=== PATIENT | female | born 1950 | race Two or more races ===

== ENCOUNTER 2020-03-02 03:40 | Emergency (ER) | payer MEDICARE, OTHER ==
[~2020-03-02] VITALS: Ht 152.4 cm; Wt 67.1 kg
--- NOTE | 2020-03-02 04:09 | NUR ---
PATIENT CAME TO ER BED 9 BIBRA FOR HIGH BLOOD PRESSURE IN THE 200s SYSTOLICALLY. UPON CHECKING BLOOD PRESSURE, PATIENT'S BLOOD PRESSURE AT 143/76. PATIENT STATES THAT SHE WAS AT A [employer] WITH HER FAMILY. PATIENT DENIES USE OF ALCOHOL AND DRUGS. PATIENT IS PATIENT UNABLE TO OPEN HER EYES. PATIENT SPEAKS MAINLY [place]. AAOX3. NO SOB. BREATHING EVENLY AND UNLABORED ON ROOM AIR AT 100%. CONNECTED TO MONITOR.
--- NOTE | 2020-03-02 04:12 | NUR ---
TECH AT BEDSIDE FOR EKG
--- NOTE | 2020-03-02 04:14 | NUR ---
BLOOD COLLECTED AND SENT TO THE LAB.
[2020-03-02 04:20] LABS: BASOPHILS # (AUTO) 0.1 /CMM (0.0-0.2); BASOPHILS % (AUTO) 0.9 % (0.0-2.0); EOSINOPHILS % (AUTO) 2.8 % (0.0-6.0); HEMATOCRIT 28 % (33-45); HEMOGLOBIN 9.3 g/dL (11.5-14.8); LYMPHOCYTES % (AUTO) 37.2 % (20.0-44.0); MEAN CORPUSCULAR HGB CONC 33 g/dl (31.0-36.0); MEAN CORPUSCULAR VOLUME 98 fL (82-100); MONOCYTES # (AUTO) 0.5 /CMM (0.1-1.30); NEUTROPHILS # (AUTO) 2.7 /CMM (1.8-8.9); NEUTROPHILS % (AUTO) 50.1 % (43.0-81.0); PLATELET COUNT (AUTO) 216 /CMM (150-450); RED BLOOD CELL COUNT(AUTO) 2.85 MIL/uL (4.0-5.2); WHITE BLOOD COUNT (AUTO) 5.4 K/uL (4.3-11.0)
--- NOTE | 2020-03-02 04:27 | NUR ---
PATIENT TAKEN TO CT VIA HEIDI
[2020-03-02 04:39] LABS: ALANINE AMINOTRANSFERASE 8 U/L (12-78); ALBUMIN 2.8 g/dL (3.4-5.0); ALCOHOL, BLOOD < 3 mg/dL (0-0); ALKALINE PHOSPHATASE 53 U/L (46-116); ASPARTATE AMINOTRANSFERASE 18 U/L (15-37); BILIRUBIN,DIRECT 0.1 mg/dL (0.0-0.2); BILIRUBIN,TOTAL 0.3 mg/dL (0.2-1.0); CALCIUM, SERUM 7.6 mg/dL (8.5-10.1); CARBON DIOXIDE 27 mmol/L (21-32); CHLORIDE 108 mmol/L (98-107); CREATININE 1.3 mg/dL (0.6-1.3); GLUCOSE 103 mg/dL (74-106); POTASSIUM 3.5 mmol/L (3.5-5.1); SODIUM SERUM 142 mmol/L (136-145); TOTAL PROTEIN, SERUM 5.9 g/dL (6.4-8.2); UREA NITROGEN, BLOOD 21 mg/dL (7-18)
--- NOTE | 2020-03-02 04:46 | NUR ---
URINE COLLECTED AND SENT TO LAB.
--- NOTE | 2020-03-02 05:19 | NUR ---
TRIED CALLING NUMBER IN PATIENT'S EMERGENCY CONTACT LIST. LEFT A VOICEMAIL.
--- NOTE | 2020-03-02 05:23 | NUR ---
CALLED [facility] FOR READ FOR XRAY AND CT.
--- NOTE | 2020-03-02 05:41 | NUR ---
ATTEMPTED TO CALL NUMBER IN PATIENT'S EMERGENCY CONTACT LIST NO ANSWER. WILL TRY AGAIN.
--- NOTE | 2020-03-02 06:24 | NUR ---
TRIED CALLING NUMBER IN PATIENT'S EMERGENCY CONTACT LIST. NO ANSWER, WILL TRY AGAIN.
--- NOTE | 2020-03-02 08:56 | NUR ---
CALLED [phone] [facility] FOR ERROL
--- NOTE | 2020-03-02 10:25 | NUR ---
RICH FANG CALLED [phone] WILL COME TO PICK MOM UP IN 20 MINS.
--- NOTE | 2020-03-02 10:59 | NUR ---
PTS. FAMILY VERBALIZED UNDERSTANDING OF AFTERCARE INSTRUCTIONS.Patient discharged to home with family in stable condition. Written and verbal after care instructions given. Patient verbalizes understanding of instruction.
--- NOTE | 2020-03-02 10:59 | NUR ---
IV removed. Catheter intact and site benign. Pressure and 4x4 applied to site. No bleeding noted.
[2020-03-02 11:00] VITALS: BP 141/88
== END 2020-03-02 11:00 | disposition home or self-care (01) ==
LOC: ER 03:42
DX: R42 Dizziness and giddiness (principal); I10 Essential (primary) hypertension; E11.9 Type 2 diabetes mellitus without complications; J44.9 Chronic obstructive pulmonary disease, unspecified; Z89.412 Acquired absence of left great toe
CPT/HCPCS: 36415; 70450-TC; 71045-TC; 80048-TC; 80076-TC; 80305; 84484-TC; 85025-TC; 85730-TC

== ENCOUNTER 2023-10-10 14:52 | Inpatient (IN) | payer MEDICARE, OTHER ==
[~2023-10-10] VITALS: Ht 160 cm; Wt 61.2 kg
[2023-10-10] MEDS ORDERED: Magnesium 1GM/D5W 100ML PREMIX 100 ML IV ONE ×2 (15:29→15:37)
[2023-10-10] MEDS ORDERED: methylPREDNISolone SOD SUCC 125 MG/2ML VIAL ONE (15:29)
[2023-10-10 15:30] LABS: BASOPHILS % (AUTO) 0.6 % (0.0-2.0); EOSINOPHILS % (AUTO) 0.4 % (0.0-6.0); HEMATOCRIT 28 % (33-45); HEMOGLOBIN 8.8 g/dL (11.5-14.8); LYMPHOCYTES # (AUTO) 0.9 K/uL (0.8-4.8); LYMPHOCYTES % (AUTO) 16.1 % (20.0-44.0); MEAN CORPUSCULAR HEMOGLOBIN 28 PG (26.0-33.0); MEAN CORPUSCULAR HGB CONC 32 g/dl (31.0-36.0); MEAN CORPUSCULAR VOLUME 89 fL (82-100); MONOCYTES # (AUTO) 0.3 K/uL (0.1-1.30); MONOCYTES % (AUTO) 5.3 % (2.0-12.0); NEUTROPHILS # (AUTO) 4.5 K/uL (1.8-8.9); NEUTROPHILS % (AUTO) 77.6 % (43.0-81.0); PLATELET COUNT (AUTO) 393 K/uL (150-450); RED BLOOD CELL COUNT(AUTO) 3.15 MIL/uL (4.0-5.2); RED CELL DISTRIBUTION WIDTH 16.4 % (11.5-15.0); WHITE BLOOD COUNT (AUTO) 5.7 K/uL (4.3-11.0)
[2023-10-10] MEDS: methylPREDNISolone SOD SUCC 125 MG/2ML VIAL IV ONE (15:30)
[2023-10-10] MEDS ORDERED: SULF1TAB48 PO (15:33)
[2023-10-10] MEDS ORDERED: TRAM50TA2 PO (15:33)
[2023-10-10] MEDS ORDERED: GABA300C PO (15:33)
[2023-10-10] MEDS ORDERED: LEVO50TA PO (15:33)
[2023-10-10] MEDS ORDERED: INSU100I30 SQ (15:33)
[2023-10-10] MEDS ORDERED: AMLO5TAB4 PO (15:33)
[2023-10-10] MEDS ORDERED: PRAM0.5T3 PO (15:33)
[2023-10-10] MEDS ORDERED: EMPA10TA PO (15:33)
[2023-10-10] MEDS ORDERED: LOSA100T31 PO (15:33)
[2023-10-10] MEDS ORDERED: BLOO-668 IN (15:33)
[2023-10-10] MEDS ORDERED: ESOM40CA52 PO (15:33)
[2023-10-10] MEDS ORDERED: MEGE40TA5 PO (15:33)
[2023-10-10] MEDS: Magnesium 1GM/D5W 100ML PREMIX 200 ML IV ONE (15:35)
[2023-10-10] MEDS ORDERED: IPRATROPIUM NEB FS 0.5 MG/2.5 ML AMPUL.NEB ONE (15:39)
[2023-10-10] MEDS ORDERED: ALBUTEROL FS 2.5 MG/3 ML VIAL.NEB ONE (15:39)
[2023-10-10] MEDS: ALBUTEROL FS 2.5 MG/3 ML VIAL.NEB CONTNEB ONE (15:43)
[2023-10-10] MEDS: IPRATROPIUM NEB FS 0.5 MG/2.5 ML AMPUL.NEB NEB ONE (15:43)
[2023-10-10 15:44] VITALS: O2SAT 97
[2023-10-10 15:44] LABS: CALCIUM, SERUM 8.5 mg/dL (8.5-10.1); CARBON DIOXIDE 26 mmol/L (21-32); CHLORIDE 100 mmol/L (98-107); CREATININE 1.3 mg/dL (0.6-1.3); GLUCOSE 165 mg/dL (74-106); POTASSIUM 5.1 mmol/L (3.5-5.1); SODIUM SERUM 132 mmol/L (136-145); UREA NITROGEN, BLOOD 19 mg/dL (7-18)
[2023-10-10 16:04] VITALS: O2SAT 99
[2023-10-10 16:07] LABS: ALANINE AMINOTRANSFERASE 17 U/L (12-78); ALBUMIN 2.3 g/dL (3.4-5.0); ALKALINE PHOSPHATASE 131 U/L (46-116); ASPARTATE AMINOTRANSFERASE 47 U/L (15-37); BILIRUBIN,DIRECT 0.1 mg/dL (0.0-0.2); BILIRUBIN,TOTAL 0.3 mg/dL (0.2-1.0); TOTAL PROTEIN, SERUM 7.1 g/dL (6.4-8.2)
[2023-10-10] MEDS ORDERED: ASPIRIN 325 MG TABLET ONE (16:13)
[2023-10-10] MEDS: ASPIRIN 325 MG TABLET PO ONE (16:37)
[2023-10-10 16:40] LABS: NT-PRO BNP > 25000 pg/mL (0-125)
[2023-10-10] MEDS: AZITHROMYCIN 500 MG in IV D5W 250 ML IV ONE (17:12)
[2023-10-10] MEDS ORDERED: FUROSEMIDE 20 MG/2 ML VIAL ONE (17:14)
[2023-10-10] MEDS: FUROSEMIDE 20 MG/2 ML VIAL IV ONE (17:18)
[2023-10-10] MEDS: CEFTRIAXONE 1GM BAG (ER ONLY) 1 GM/50 ML PIGGYBACK IV ONE (18:18)
[2023-10-10 20:50] VITALS: BP 123/80; TEMP 99; O2SAT 100
[2023-10-10] MEDS ORDERED: GABAPENTIN 300 MG CAPSULE PO SCH (20:58)
[2023-10-10] MEDS ORDERED: ZOLPIDEM TARTRATE 5 MG TABLET PO PRN (21:00)
[2023-10-10] MEDS ORDERED: [UNRECOGNIZED DRUG - REMARK] SQ PRN (21:30)
[2023-10-10] MEDS ORDERED: [UNRECOGNIZED DRUG - REMARK] SQ PRN (21:30)
[2023-10-10] MEDS ORDERED: [UNRECOGNIZED DRUG - REMARK] SQ PRN (21:30)
[2023-10-10] MEDS ORDERED: [UNRECOGNIZED DRUG - REMARK] SQ PRN (21:30)
[2023-10-10] MEDS ORDERED: [UNRECOGNIZED DRUG - REMARK] SQ PRN (21:30)
[2023-10-10] MEDS ORDERED: [UNRECOGNIZED DRUG - REMARK] SQ PRN (21:30)
[2023-10-10] MEDS ORDERED: [UNRECOGNIZED DRUG - REMARK] SQ PRN (21:30)
[2023-10-10] MEDS ORDERED: [UNRECOGNIZED DRUG - REMARK] SQ PRN (21:30)
[2023-10-10] MEDS ORDERED: [UNRECOGNIZED DRUG - REMARK] SQ PRN (21:30)
[2023-10-10] MEDS ORDERED: [UNRECOGNIZED DRUG - REMARK] SQ PRN (21:30)
[2023-10-10] MEDS ORDERED: [UNRECOGNIZED DRUG - REMARK] SQ PRN (21:30)
[2023-10-10] MEDS ORDERED: DEXTROSE 50%-WATER 50 ML DISP.SYRIN IV PRN ×2 (21:30)
[2023-10-10] MEDS ORDERED: [UNRECOGNIZED DRUG - REMARK] SQ PRN (21:30)
[2023-10-10] MEDS ORDERED: [UNRECOGNIZED DRUG - REMARK] SQ PRN (21:30)
[2023-10-10] MEDS ORDERED: [UNRECOGNIZED DRUG - REMARK] SQ PRN (21:30)
[2023-10-10 21:50] VITALS: O2SAT 96
[2023-10-10] MEDS: ALBUTEROL FS 2.5 MG/0.5 ML VIAL.NEB NEB PRN (21:53)
[2023-10-10] MEDS: IPRATROPIUM NEB FS 0.5 MG/2.5 ML AMPUL.NEB NEB PRN (21:53)
[2023-10-10] MEDS: BLOOD SUGAR DIAGNOSTIC 1 EACH STRIP VI SCH (22:00)
[2023-10-10] MEDS ORDERED: [UNRECOGNIZED DRUG - REMARK] IN SCH (22:00)
[2023-10-10 22:05] VITALS: O2SAT 99
[2023-10-10] MEDS: ATORVASTATIN 40 MG TABLET PO SCH (23:24)
[2023-10-10] MEDS: HYDROCODONE/APAP 5/325MG TABLET PO PRN (23:24)
[2023-10-10] MEDS: *INSULIN REGULAR(HUMULIN R)HUM 100 UNIT/ML VIAL SQ PRN (23:33)
[2023-10-11] VITALS (12 sets, daily range): BP systolic 100–143; BP diastolic 69–94; TEMP 97.5–98.4; O2SAT 93–100
[2023-10-11] MEDS: ALBUTEROL FS 2.5 MG/0.5 ML VIAL.NEB NEB SCH (01:35)
[2023-10-11] MEDS: IPRATROPIUM NEB FS 0.5 MG/2.5 ML AMPUL.NEB NEB SCH (01:35)
[2023-10-11 04:18] LABS: BASOPHILS % (AUTO) 0.1 % (0.0-2.0); HEMATOCRIT 28 % (33-45); LYMPHOCYTES # (AUTO) 0.5 K/uL (0.8-4.8); LYMPHOCYTES % (AUTO) 9.5 % (20.0-44.0); MEAN CORPUSCULAR HEMOGLOBIN 29 PG (26.0-33.0); MEAN CORPUSCULAR HGB CONC 33 g/dl (31.0-36.0); MEAN CORPUSCULAR VOLUME 89 fL (82-100); MONOCYTES # (AUTO) 0.3 K/uL (0.1-1.30); MONOCYTES % (AUTO) 4.6 % (2.0-12.0); NEUTROPHILS # (AUTO) 4.9 K/uL (1.8-8.9); NEUTROPHILS % (AUTO) 85.8 % (43.0-81.0); PLATELET COUNT (AUTO) 367 K/uL (150-450); RED CELL DISTRIBUTION WIDTH 16.8 % (11.5-15.0); WHITE BLOOD COUNT (AUTO) 5.7 K/uL (4.3-11.0)
[2023-10-11 04:26] LABS: CALCIUM, SERUM 8.6 mg/dL (8.5-10.1); CARBON DIOXIDE 26 mmol/L (21-32); CHLORIDE 98 mmol/L (98-107); CREATININE 1.7 mg/dL (0.6-1.3); GLUCOSE 195 mg/dL (74-106); POTASSIUM 4.9 mmol/L (3.5-5.1); SODIUM SERUM 132 mmol/L (136-145); UREA NITROGEN, BLOOD 24 mg/dL (7-18)
[2023-10-11] MEDS: INSULIN REGULAR, HUMAN 100 UNIT/ML 3 ML VIAL SQ PRN (06:50)
[2023-10-11] MEDS: PANTOPRAZOLE 40 MG TABLET.DR PO SCH (08:30)
[2023-10-11] MEDS: LOSARTAN POTASSIUM 50 MG TABLET PO SCH (08:31)
[2023-10-11] MEDS: TRAMADOL HCL 50 MG TABLET PO SCH (08:33)
[2023-10-11] MEDS: GABAPENTIN 300 MG CAPSULE PO SCH (08:34)
[2023-10-11] MEDS: ASPIRIN 81 MG TAB.CHEW PO SCH (08:34)
[2023-10-11] MEDS: AMLODIPINE BESYLATE 5 MG TABLET PO SCH (08:34)
[2023-10-11] MEDS: LEVOTHYROXINE SODIUM 50 MCG TABLET PO SCH (08:34)
[2023-10-11] MEDS: INSULIN GLARGINE, 100 UNIT/ML CARTRIDGE SQ SCH (08:44)
[2023-10-11] MEDS: METOPROLOL SUCCINATE 25 MG TAB.SR.24H PO SCH (09:48)
[2023-10-11] MEDS: ACETAMINOPHEN 325 MG TABLET PO PRN (10:24)
[2023-10-11] MEDS: methylPREDNISolone SOD SUCC 40 MG/ML VIAL IV SCH (20:39)
[2023-10-11] MEDS: FUROSEMIDE 40 MG/4 ML VIAL IV SCH (21:14)
[2023-10-12] VITALS (10 sets, daily range): BP systolic 92–146; BP diastolic 51–96; TEMP 98.2–99.3; O2SAT 93–100
[2023-10-12 07:54] LABS: HEMATOCRIT 26 % (33-45); HEMOGLOBIN 8.5 g/dL (11.5-14.8); LYMPHOCYTES # (AUTO) 0.4 K/uL (0.8-4.8); LYMPHOCYTES % (AUTO) 7.2 % (20.0-44.0); MEAN CORPUSCULAR HEMOGLOBIN 30 PG (26.0-33.0); MEAN CORPUSCULAR HGB CONC 33 g/dl (31.0-36.0); MEAN CORPUSCULAR VOLUME 90 fL (82-100); MONOCYTES # (AUTO) 0.1 K/uL (0.1-1.30); MONOCYTES % (AUTO) 1.5 % (2.0-12.0); NEUTROPHILS # (AUTO) 4.7 K/uL (1.8-8.9); NEUTROPHILS % (AUTO) 91.3 % (43.0-81.0); PLATELET COUNT (AUTO) 374 K/uL (150-450); RED BLOOD CELL COUNT(AUTO) 2.89 MIL/uL (4.0-5.2); RED CELL DISTRIBUTION WIDTH 16.4 % (11.5-15.0); WHITE BLOOD COUNT (AUTO) 5.1 K/uL (4.3-11.0)
[2023-10-12 08:09] LABS: CALCIUM, SERUM 8.2 mg/dL (8.5-10.1); CARBON DIOXIDE 29 mmol/L (21-32); CHLORIDE 97 mmol/L (98-107); CREATININE 1.6 mg/dL (0.6-1.3); GLUCOSE 290 mg/dL (74-106); POTASSIUM 4.7 mmol/L (3.5-5.1); SODIUM SERUM 132 mmol/L (136-145); UREA NITROGEN, BLOOD 27 mg/dL (7-18)
[2023-10-12 08:14] LABS: CHOLESTEROL 132 mg/dL (<200); HDL CHOLESTEROL 78 mg/dL (40-60); LDL 39 mg/dL (0-99); TRIGLYCERIDES 60 mg/dL (30-150)
[2023-10-12] MEDS: JARDIANCE 10 MG PO SCH (09:02)
[2023-10-12] MEDS: THERAHONEY GEL 1.5 OZ TUBE TP SCH (09:07)
[2023-10-12] MEDS: Z GUARD REMEDY 4 OZ OINT TP PRN (09:08)
[2023-10-12 09:15] LABS: IRON, SERUM 34 ug/dl (50-175); TOTAL IRON BINDING CAPACITY 175 ug/dl (250-450)
[2023-10-13] VITALS (8 sets, daily range): BP systolic 106–117; BP diastolic 54–73; TEMP 97.7–98.6; O2SAT 95–100
[2023-10-13 11:52] LABS: BASOPHILS % (AUTO) 0.2 % (0.0-2.0); EOSINOPHILS # (AUTO) 0.2 K/uL (0.0-0.7); HEMATOCRIT 28 % (33-45); HEMOGLOBIN 8.9 g/dL (11.5-14.8); LYMPHOCYTES # (AUTO) 1.2 K/uL (0.8-4.8); LYMPHOCYTES % (AUTO) 15.7 % (20.0-44.0); MEAN CORPUSCULAR HEMOGLOBIN 29 PG (26.0-33.0); MEAN CORPUSCULAR HGB CONC 32 g/dl (31.0-36.0); MEAN CORPUSCULAR VOLUME 91 fL (82-100); MONOCYTES # (AUTO) 0.4 K/uL (0.1-1.30); MONOCYTES % (AUTO) 5.3 % (2.0-12.0); NEUTROPHILS # (AUTO) 5.7 K/uL (1.8-8.9); NEUTROPHILS % (AUTO) 76.8 % (43.0-81.0); PLATELET COUNT (AUTO) 412 K/uL (150-450); RED BLOOD CELL COUNT(AUTO) 3.11 MIL/uL (4.0-5.2); RED CELL DISTRIBUTION WIDTH 16.5 % (11.5-15.0); WHITE BLOOD COUNT (AUTO) 7.5 K/uL (4.3-11.0)
[2023-10-13 12:18] LABS: ALANINE AMINOTRANSFERASE 16 U/L (12-78); ALKALINE PHOSPHATASE 120 U/L (46-116); ASPARTATE AMINOTRANSFERASE 25 U/L (15-37); BILIRUBIN,TOTAL 0.2 mg/dL (0.2-1.0); CALCIUM, SERUM 8.2 mg/dL (8.5-10.1); CARBON DIOXIDE 31 mmol/L (21-32); CHLORIDE 99 mmol/L (98-107); CREATININE 1.3 mg/dL (0.6-1.3); GLUCOSE 122 mg/dL (74-106); MAGNESIUM 2.1 mg/dL (1.8-2.4); PHOSPHORUS 3.7 mg/dL (2.5-4.9); POTASSIUM 4.2 mmol/L (3.5-5.1); SODIUM SERUM 135 mmol/L (136-145); TOTAL PROTEIN, SERUM 6.2 g/dL (6.4-8.2); UREA NITROGEN, BLOOD 28 mg/dL (7-18)
[2023-10-14] VITALS (8 sets, daily range): BP systolic 95–139; BP diastolic 49–90; TEMP 97.4–98.6; O2SAT 96–100
[2023-10-14 07:37] LABS: BASOPHILS % (AUTO) 0.1 % (0.0-2.0); EOSINOPHILS # (AUTO) 0.2 K/uL (0.0-0.7); EOSINOPHILS % (AUTO) 1.6 % (0.0-6.0); HEMATOCRIT 30 % (33-45); HEMOGLOBIN 9.4 g/dL (11.5-14.8); LYMPHOCYTES # (AUTO) 1.1 K/uL (0.8-4.8); LYMPHOCYTES % (AUTO) 9.8 % (20.0-44.0); MEAN CORPUSCULAR HEMOGLOBIN 29 PG (26.0-33.0); MEAN CORPUSCULAR HGB CONC 32 g/dl (31.0-36.0); MEAN CORPUSCULAR VOLUME 91 fL (82-100); MONOCYTES # (AUTO) 0.4 K/uL (0.1-1.30); MONOCYTES % (AUTO) 3.8 % (2.0-12.0); NEUTROPHILS # (AUTO) 9.4 K/uL (1.8-8.9); NEUTROPHILS % (AUTO) 84.7 % (43.0-81.0); PLATELET COUNT (AUTO) 422 K/uL (150-450); RED BLOOD CELL COUNT(AUTO) 3.23 MIL/uL (4.0-5.2); RED CELL DISTRIBUTION WIDTH 16.3 % (11.5-15.0); WHITE BLOOD COUNT (AUTO) 11.1 K/uL (4.3-11.0)
[2023-10-14 07:47] LABS: ALANINE AMINOTRANSFERASE 16 U/L (12-78); ALBUMIN 1.8 g/dL (3.4-5.0); ALKALINE PHOSPHATASE 123 U/L (46-116); ASPARTATE AMINOTRANSFERASE 21 U/L (15-37); BILIRUBIN,TOTAL 0.3 mg/dL (0.2-1.0); CALCIUM, SERUM 7.7 mg/dL (8.5-10.1); CARBON DIOXIDE 30 mmol/L (21-32); CHLORIDE 99 mmol/L (98-107); CREATININE 1.4 mg/dL (0.6-1.3); GLUCOSE 223 mg/dL (74-106); MAGNESIUM 1.8 mg/dL (1.8-2.4); PHOSPHORUS 3.2 mg/dL (2.5-4.9); POTASSIUM 3.6 mmol/L (3.5-5.1); SODIUM SERUM 135 mmol/L (136-145); TOTAL PROTEIN, SERUM 5.9 g/dL (6.4-8.2); UREA NITROGEN, BLOOD 33 mg/dL (7-18)
[2023-10-14 08:06] LABS: CREATINE KINASE, TOTAL 49 U/L (26-192)
[2023-10-15] VITALS (8 sets, daily range): BP systolic 90–123; BP diastolic 50–86; TEMP 98–98.8; O2SAT 96–100
[2023-10-15 08:06] LABS: PTH, INTACT 113 pg/mL (15-65)
[2023-10-15 12:25] LABS: BASOPHILS % (AUTO) 0.4 % (0.0-2.0); EOSINOPHILS # (AUTO) 0.1 K/uL (0.0-0.7); EOSINOPHILS % (AUTO) 1.6 % (0.0-6.0); HEMATOCRIT 30 % (33-45); HEMOGLOBIN 9.5 g/dL (11.5-14.8); LYMPHOCYTES # (AUTO) 1.3 K/uL (0.8-4.8); LYMPHOCYTES % (AUTO) 17.6 % (20.0-44.0); MEAN CORPUSCULAR HEMOGLOBIN 29 PG (26.0-33.0); MEAN CORPUSCULAR HGB CONC 32 g/dl (31.0-36.0); MEAN CORPUSCULAR VOLUME 90 fL (82-100); MONOCYTES # (AUTO) 0.3 K/uL (0.1-1.30); MONOCYTES % (AUTO) 4.4 % (2.0-12.0); NEUTROPHILS # (AUTO) 5.4 K/uL (1.8-8.9); PLATELET COUNT (AUTO) 382 K/uL (150-450); RED BLOOD CELL COUNT(AUTO) 3.33 MIL/uL (4.0-5.2); RED CELL DISTRIBUTION WIDTH 16.8 % (11.5-15.0); WHITE BLOOD COUNT (AUTO) 7.1 K/uL (4.3-11.0)
[2023-10-15 12:46] LABS: CARBON DIOXIDE 30 mmol/L (21-32); CHLORIDE 101 mmol/L (98-107); CREATININE 1.4 mg/dL (0.6-1.3); GLUCOSE 186 mg/dL (74-106); POTASSIUM 3.8 mmol/L (3.5-5.1); SODIUM SERUM 136 mmol/L (136-145); UREA NITROGEN, BLOOD 37 mg/dL (7-18)
[2023-10-16] VITALS (8 sets, daily range): BP systolic 90–95; BP diastolic 57–79; TEMP 97.7–99; O2SAT 95–100
[2023-10-16 08:02] LABS: BASOPHILS # (AUTO) 0.1 K/uL (0.0-0.2); BASOPHILS % (AUTO) 0.9 % (0.0-2.0); EOSINOPHILS # (AUTO) 0.1 K/uL (0.0-0.7); EOSINOPHILS % (AUTO) 1.4 % (0.0-6.0); HEMATOCRIT 29 % (33-45); HEMOGLOBIN 9.1 g/dL (11.5-14.8); LYMPHOCYTES # (AUTO) 1.9 K/uL (0.8-4.8); MEAN CORPUSCULAR HEMOGLOBIN 29 PG (26.0-33.0); MEAN CORPUSCULAR HGB CONC 32 g/dl (31.0-36.0); MEAN CORPUSCULAR VOLUME 91 fL (82-100); MONOCYTES # (AUTO) 0.4 K/uL (0.1-1.30); NEUTROPHILS # (AUTO) 5.8 K/uL (1.8-8.9); NEUTROPHILS % (AUTO) 69.7 % (43.0-81.0); PLATELET COUNT (AUTO) 379 K/uL (150-450); RED BLOOD CELL COUNT(AUTO) 3.14 MIL/uL (4.0-5.2); RED CELL DISTRIBUTION WIDTH 16.8 % (11.5-15.0); WHITE BLOOD COUNT (AUTO) 8.4 K/uL (4.3-11.0)
[2023-10-16 08:40] LABS: ALANINE AMINOTRANSFERASE 12 U/L (12-78); ALBUMIN 1.9 g/dL (3.4-5.0); ALKALINE PHOSPHATASE 106 U/L (46-116); ASPARTATE AMINOTRANSFERASE 18 U/L (15-37); BILIRUBIN,TOTAL 0.2 mg/dL (0.2-1.0); CALCIUM, SERUM 7.5 mg/dL (8.5-10.1); CARBON DIOXIDE 29 mmol/L (21-32); CHLORIDE 100 mmol/L (98-107); CREATININE 1.5 mg/dL (0.6-1.3); GLUCOSE 193 mg/dL (74-106); MAGNESIUM 1.9 mg/dL (1.8-2.4); PHOSPHORUS 3.6 mg/dL (2.5-4.9); POTASSIUM 3.6 mmol/L (3.5-5.1); SODIUM SERUM 136 mmol/L (136-145); TOTAL PROTEIN, SERUM 6.1 g/dL (6.4-8.2); UREA NITROGEN, BLOOD 40 mg/dL (7-18)
[2023-10-16] MEDS ORDERED: AMIODARONE 450 MG in IV D5W 241 ML IV PRN (18:30)
[2023-10-16] MEDS: AMIODARONE 150 MG/3 ML VIAL IV ONE (19:11)
[2023-10-16] MEDS: AMIODARONE 150 MG in IV D5W 100 ML IV ONE (19:32)
[2023-10-16] MEDS: IV NS 0.9% 250 ML IV ONE (20:19)
[2023-10-17] VITALS (10 sets, daily range): BP systolic 82–121; BP diastolic 61–79; TEMP 97.3–98.6; O2SAT 97–100
[2023-10-17 00:36] LABS: APPEARANCE,URINE CLEAR (CLEAR); BILIRUBIN,URINE NEGATIVE (NEGATIVE); BLOOD, URINE NEGATIVE Ery/uL (NEGATIVE); COLOR,URINE YELLOW (YELLOW); KETONES,URINE NEGATIVE (NEGATIVE); LEUKOCYTE ESTERASE ,URINE NEGATIVE (NEGATIVE); NITRITE, URINE NEGATIVE (NEGATIVE); PH,URINE 5.5 (5.0-8.0); PROTEIN,URINE NEGATIVE (NEGATIVE); UGLUCOSE 3+ mg/dL (NEGATIVE); UROBILINOGEN,URINE 0.2 EU/dL (0.2)
[2023-10-17 00:42] LABS: ADD URINE CULTURE NO; BACTERIA,URINE None seen /HPF (None Seen); EOSINOPHIL,URINE None Seen; RBC,URINE 0-2 /HPF (0-2); SQUAMOUS EPITHELIAL CELL,UR Few /HPF (None Seen); WBC,URINE 0-2 /HPF (0-3)
[2023-10-17 00:51] LABS: CREATININE, URINE 24.6 MG/DL (30.0-125.0); URINE TOTAL PROTEIN 18.5 mg/dL (0-11.9)
[2023-10-17] MEDS: IV NS 0.9% 500 ML IV ONE (00:52)
[2023-10-17 07:20] LABS: CALCIUM, SERUM 7.5 mg/dL (8.5-10.1); CARBON DIOXIDE 29 mmol/L (21-32); CHLORIDE 102 mmol/L (98-107); CREATININE 1.6 mg/dL (0.6-1.3); GLUCOSE 251 mg/dL (74-106); POTASSIUM 3.8 mmol/L (3.5-5.1); SODIUM SERUM 138 mmol/L (136-145); UREA NITROGEN, BLOOD 42 mg/dL (7-18)
[2023-10-17 07:27] LABS: INR 1.14 (0.91-1.10); PARTIAL THROMBOPLASTIN TIME 30.3 SEC (24.3-34.3)
[2023-10-17] MEDS: IV NS 0.9% 250 ML IV ONE (11:06)
[2023-10-17] MEDS: DIGOXIN INJ 0.5 MG/2 ML AMPUL IV ONE (14:16)
[2023-10-18] VITALS (13 sets, daily range): BP systolic 76–141; BP diastolic 48–81; TEMP 97.9–99; O2SAT 94–100
[2023-10-18 06:07] LABS: *SPE A/G RATIO 0.7 (0.7-1.7); *SPE ALBUMIN 2.2 g/dL (2.9-4.4); *SPE ALPHA-1-GLOBULIN 0.3 g/dL (0.0-0.4); *SPE ALPHA-2-GLOBULIN 0.8 g/dL (0.4-1.0); *SPE BETA GLOBULIN 0.8 g/dL (0.7-1.3); *SPE M-SPIKE Not Observed g/dL (Not Observed); *SPE PROTEIN TOTAL 5.2 g/dL (6.0-8.5); *SPEGAMMA GLOBULIN 1.2 g/dL (0.4-1.8)
[2023-10-18 10:56] LABS: BASOPHILS % (AUTO) 0.3 % (0.0-2.0); EOSINOPHILS # (AUTO) 0.1 K/uL (0.0-0.7); EOSINOPHILS % (AUTO) 2.8 % (0.0-6.0); HEMATOCRIT 28 % (33-45); HEMOGLOBIN 8.8 g/dL (11.5-14.8); LYMPHOCYTES # (AUTO) 1.7 K/uL (0.8-4.8); LYMPHOCYTES % (AUTO) 33.8 % (20.0-44.0); MEAN CORPUSCULAR HEMOGLOBIN 29 PG (26.0-33.0); MEAN CORPUSCULAR HGB CONC 32 g/dl (31.0-36.0); MEAN CORPUSCULAR VOLUME 92 fL (82-100); MONOCYTES # (AUTO) 0.4 K/uL (0.1-1.30); MONOCYTES % (AUTO) 8.4 % (2.0-12.0); NEUTROPHILS # (AUTO) 2.8 K/uL (1.8-8.9); NEUTROPHILS % (AUTO) 54.7 % (43.0-81.0); PLATELET COUNT (AUTO) 363 K/uL (150-450); RED BLOOD CELL COUNT(AUTO) 3.01 MIL/uL (4.0-5.2); RED CELL DISTRIBUTION WIDTH 17.2 % (11.5-15.0); WHITE BLOOD COUNT (AUTO) 5.1 K/uL (4.3-11.0)
[2023-10-18] MEDS ORDERED: IODIXANOL 150 ML IV ONE (10:59)
[2023-10-18] MEDS ORDERED: LIDOCAINE HCL/MPF 1% 30 ML VIAL IJ ONE (11:00)
[2023-10-18 11:22] LABS: CALCIUM, SERUM 8.2 mg/dL (8.5-10.1); POTASSIUM 3.9 mmol/L (3.5-5.1)
[2023-10-18] MEDS ORDERED: MIDAZOLAM HCL 2 MG/2ML VIAL ONE (11:48)
[2023-10-18] MEDS ORDERED: FENTANYL PF 100MCG/2ML AMPUL ONE (11:48)
[2023-10-18] MEDS ORDERED: hydrALAZINE HCL IV 20 MG VIAL ONE (12:14)
[2023-10-18] MEDS: METOPROLOL TARTRATE 50 MG TABLET PO SCH (20:12)
[2023-10-19] VITALS: BP 125/78; TEMP 98.9; O2SAT 98
[2023-10-19 04:00] VITALS: BP 112/68; TEMP 98.3; O2SAT 100
[2023-10-19 07:18] LABS: BASOPHILS % (AUTO) 0.3 % (0.0-2.0); EOSINOPHILS # (AUTO) 0.1 K/uL (0.0-0.7); EOSINOPHILS % (AUTO) 1.7 % (0.0-6.0); HEMATOCRIT 27 % (33-45); HEMOGLOBIN 8.6 g/dL (11.5-14.8); LYMPHOCYTES # (AUTO) 1.5 K/uL (0.8-4.8); LYMPHOCYTES % (AUTO) 27.4 % (20.0-44.0); MEAN CORPUSCULAR HEMOGLOBIN 29 PG (26.0-33.0); MEAN CORPUSCULAR HGB CONC 32 g/dl (31.0-36.0); MEAN CORPUSCULAR VOLUME 92 fL (82-100); MONOCYTES # (AUTO) 0.5 K/uL (0.1-1.30); MONOCYTES % (AUTO) 9.5 % (2.0-12.0); NEUTROPHILS # (AUTO) 3.3 K/uL (1.8-8.9); NEUTROPHILS % (AUTO) 61.1 % (43.0-81.0); PLATELET COUNT (AUTO) 345 K/uL (150-450); RED BLOOD CELL COUNT(AUTO) 2.92 MIL/uL (4.0-5.2); RED CELL DISTRIBUTION WIDTH 16.7 % (11.5-15.0); WHITE BLOOD COUNT (AUTO) 5.5 K/uL (4.3-11.0)
[2023-10-19] MEDS ORDERED: ASPI-1169 PO (07:30)
[2023-10-19] MEDS ORDERED: FURO20TA4 PO (07:30)
[2023-10-19] MEDS ORDERED: METO50TA16 PO (07:30)
[2023-10-19] MEDS ORDERED: ATOR40TA PO (07:30)
[2023-10-19 07:47] LABS: CALCIUM, SERUM 7.4 mg/dL (8.5-10.1); CREATININE 1.1 mg/dL (0.6-1.3)
[2023-10-19 08:00] VITALS: BP 132/70; TEMP 98; O2SAT 100
[2023-10-19] MEDS: FUROSEMIDE 20 MG TABLET PO SCH (08:17)
[2023-10-19 12:00] VITALS: BP 132/70; TEMP 98; O2SAT 100
[2023-10-19 16:00] VITALS: BP 107/46; TEMP 98.3; O2SAT 100
== END 2023-10-19 18:38 | disposition home or self-care (01) | DRG 166 ==
LOC: ER 15:13 → TELE 19:43 → TELE1 10-16 17:56 → TELE-TD 10-16 17:57 → ICU 10-18 12:33 → TELE1 10-18 19:22 → MEDSG1 10-19 18:30
PROVIDERS: ADMIT Internal Medicine; ATTEND Internal Medicine
PROC: 0JBQ0ZZ Excision of Right Foot Subcutaneous Tissue and Fascia, Open Approach (ICD-10-PCS; principal; 2023-10-13)
PROC: 0QBR0ZZ Excision of Left Toe Phalanx, Open Approach (ICD-10-PCS; 2023-10-13)
PROC: 4A023N7 Measurement of Cardiac Sampling and Pressure, Left Heart, Percutaneous Approach (ICD-10-PCS; 2023-10-18)
PROC: B211YZZ Fluoroscopy of Multiple Coronary Arteries using Other Contrast (ICD-10-PCS; 2023-10-18)
DX: J44.1 Chronic obstructive pulmonary disease with (acute) exacerbation (principal); I21.A1 Myocardial infarction type 2; I50.23 Acute on chronic systolic (congestive) heart failure; I13.0 Hypertensive heart and chronic kidney disease with heart failure and stage 1 through stage 4 chronic kidney disease, or unspecified chronic kidney disease; E11.52 Type 2 diabetes mellitus with diabetic peripheral angiopathy with gangrene; E44.0 Moderate protein-calorie malnutrition; I70.268 Atherosclerosis of native arteries of extremities with gangrene, other extremity; N17.9 Acute kidney failure, unspecified; N13.30 Unspecified hydronephrosis; I42.8 Other cardiomyopathies; Z20.822 Contact with and (suspected) exposure to COVID-19; I25.10 Atherosclerotic heart disease of native coronary artery without angina pectoris; L97.519 Non-pressure chronic ulcer of other part of right foot with unspecified severity; L97.529 Non-pressure chronic ulcer of other part of left foot with unspecified severity; N18.9 Chronic kidney disease, unspecified; E11.22 Type 2 diabetes mellitus with diabetic chronic kidney disease; E11.42 Type 2 diabetes mellitus with diabetic polyneuropathy; E11.621 Type 2 diabetes mellitus with foot ulcer; E88.09 Other disorders of plasma-protein metabolism, not elsewhere classified; Z79.4 Long term (current) use of insulin; Z79.890 Hormone replacement therapy; Z79.899 Other long term (current) drug therapy; Z79.84 Long term (current) use of oral hypoglycemic drugs; E03.9 Hypothyroidism, unspecified; N81.4 Uterovaginal prolapse, unspecified; Z89.422 Acquired absence of other left toe(s); D63.8 Anemia in other chronic diseases classified elsewhere
CPT/HCPCS: 36415; 71045-TC; 76770-TC; 80048-TC; 80053-TC; 80061-TC; 80076-TC; 81001; 82550-TC; 82570-TC; 82962-TC; 83540-TC; 83735-TC; 83880; 83970; 84100-TC; 84155; 84165; 84300-TC; 84443-TC; 84484-TC; 85025-TC; 85610-TC; 85730-TC; 93307-TC; 94760-TC; 94761-TC; 94799-TC; A4223; C1887; C1894; G0269; G0378; G0500; J0282; J0360; J0456; J0696; J1160; J1644; J1815; J1940; J2250; J2920; J2930; J3010; J3475; J3490; J7040; J7050; J7060; Q9967

== ENCOUNTER 2023-10-21 20:46 | Emergency (ER) | payer MEDICARE, OTHER ==
[~2023-10-21] VITALS: Ht 160 cm; Wt 54.0 kg
[~2023-10-21 20:46] MED LIST: ASPI-1169 PO; ATOR40TA PO; BLOO-668 IN; EMPA10TA PO; ESOM40CA52 PO; FURO20TA4 PO; GABA300C PO; INSU100I30 SQ; LEVO50TA PO; METO50TA16 PO; PRAM0.5T3 PO; TRAM50TA2 PO
[2023-10-21] MEDS: IV NS 0.9% 500 ML BAG IV ONE (21:43)
[2023-10-21 22:32] LABS: BASOPHILS % (AUTO) 0.3 % (0.0-2.0); EOSINOPHILS # (AUTO) 0.1 K/uL (0.0-0.7); EOSINOPHILS % (AUTO) 1.2 % (0.0-6.0); HEMATOCRIT 27 % (33-45); HEMOGLOBIN 8.6 g/dL (11.5-14.8); LYMPHOCYTES # (AUTO) 1.9 K/uL (0.8-4.8); MEAN CORPUSCULAR HEMOGLOBIN 29 PG (26.0-33.0); MEAN CORPUSCULAR HGB CONC 31 g/dl (31.0-36.0); MEAN CORPUSCULAR VOLUME 92 fL (82-100); MONOCYTES # (AUTO) 0.6 K/uL (0.1-1.30); MONOCYTES % (AUTO) 7.4 % (2.0-12.0); NEUTROPHILS % (AUTO) 69.1 % (43.0-81.0); PLATELET COUNT (AUTO) 316 K/uL (150-450); RED BLOOD CELL COUNT(AUTO) 2.98 MIL/uL (4.0-5.2); RED CELL DISTRIBUTION WIDTH 17.3 % (11.5-15.0); WHITE BLOOD COUNT (AUTO) 8.7 K/uL (4.3-11.0)
[2023-10-21 22:47] LABS: ALANINE AMINOTRANSFERASE 13 U/L (12-78); ALBUMIN 2.1 g/dL (3.4-5.0); ALCOHOL, BLOOD < 3 mg/dL (0-10); ALKALINE PHOSPHATASE 100 U/L (46-116); ASPARTATE AMINOTRANSFERASE 14 U/L (15-37); BILIRUBIN,DIRECT 0.1 mg/dL (0.0-0.2); BILIRUBIN,TOTAL 0.2 mg/dL (0.2-1.0); CALCIUM, SERUM 8.2 mg/dL (8.5-10.1); CARBON DIOXIDE 32 mmol/L (21-32); CHLORIDE 101 mmol/L (98-107); CREATININE 1.2 mg/dL (0.6-1.3); GLUCOSE 239 mg/dL (74-106); POTASSIUM 4.5 mmol/L (3.5-5.1); SODIUM SERUM 134 mmol/L (136-145); TOTAL PROTEIN, SERUM 6.2 g/dL (6.4-8.2); UREA NITROGEN, BLOOD 28 mg/dL (7-18)
[2023-10-21 22:50] LABS: LACTIC ACID 0.6 mmol/L (0.4-2.0)
[2023-10-21 22:55] LABS: THYROID STIMULATING HORMONE 3.366 uIU/mL (0.358-3.74)
[2023-10-21 23:00] LABS: INR 1.07 (0.91-1.10); PARTIAL THROMBOPLASTIN TIME 30.2 SEC (24.3-34.3); PROTHROMBIN TIME 11.3 SECS (9.2-11.1)
[2023-10-21 23:47] LABS: APPEARANCE,URINE CLOUDY (CLEAR); BILIRUBIN,URINE NEGATIVE (NEGATIVE); BLOOD, URINE 1+ Ery/uL (NEGATIVE); COLOR,URINE DARK YELLOW (YELLOW); KETONES,URINE NEGATIVE (NEGATIVE); LEUKOCYTE ESTERASE ,URINE 2+ (NEGATIVE); NITRITE, URINE POSITIVE (NEGATIVE); PROTEIN,URINE 2+ mg/dl (NEGATIVE); UGLUCOSE 3+ mg/dL (NEGATIVE); UROBILINOGEN,URINE 0.2 EU/dL (0.2)
[2023-10-21 23:50] LABS: ADD URINE CULTURE YES; BACTERIA,URINE Many /HPF (None Seen); SQUAMOUS EPITHELIAL CELL,UR Rare /HPF (None Seen); WBC,URINE TOO NUMEROUS TO COUN /HPF (0-3)
[2023-10-22] MEDS ORDERED: CEFTRIAXONE 1GM BAG (ER ONLY) 50 ML IV ONE (00:29)
[2023-10-22] MEDS: CEFTRIAXONE 1GM BAG (ER ONLY) 1 GM/50 ML PIGGYBACK IV ONE (00:36)
[2023-10-22] MEDS ORDERED: LORAZEPAM INJ 2 MG/ML VIAL ONE (04:47)
[2023-10-22] MEDS: LORAZEPAM INJ 2 MG/ML VIAL IV ONE (05:01)
[2023-10-22 06:55] VITALS: TEMP 97.9
[2023-10-22 08:32] VITALS: BP 116/61; O2SAT 100
[2023-10-22] MEDS ORDERED: ACETAMINOPHEN ES 500 MG TABLET ONE (09:17)
[2023-10-22] MEDS: ACETAMINOPHEN ES 500 MG TABLET PO ONE (09:23)
== END 2023-10-22 10:37 | disposition short-term general hospital (02) ==
LOC: ER 20:54
DX: N39.0 Urinary tract infection, site not specified (principal); E11.65 Type 2 diabetes mellitus with hyperglycemia; G93.40 Encephalopathy, unspecified; D64.9 Anemia, unspecified; I10 Essential (primary) hypertension; J44.9 Chronic obstructive pulmonary disease, unspecified; Z79.4 Long term (current) use of insulin; Z79.899 Other long term (current) drug therapy; Z20.822 Contact with and (suspected) exposure to COVID-19
CPT/HCPCS: 99285; 93005; 71045; 70450; 85025; 80048; 87040 ×2; 87086; 82010; 83605; 80076; 81001; 36415 ×2; 84443; 84484 ×2; 85730; 82962 ×2; 80320; 96365; 96375; 87426; J7040; J2060; J0696; G0480